=== PATIENT | female | born 1960 | race Caucasian/White ===

== ENCOUNTER 2018-05-09 11:55 | Emergency (ER) | payer OTHER ==
[~2018-05-09] VITALS: Ht 172.7 cm; Wt 82.0 kg
[2018-05-09] MEDS ORDERED: TETanus/Pertussis (Acell)/Diphther VAC/PF (Tdap-Adult) 0.5ml syringe IM ONE (14:25)
[2018-05-09] MEDS ORDERED: LIDOcaine 1.5% w/epinephrine 1:200,000 5ml ampul IJ ONE (14:25)
[2018-05-09] MEDS ORDERED: bacitracin 15gm ointment TP ONE (14:25)
[2018-05-09 16:22] VITALS: BP 127/92
== END 2018-05-09 16:24 | disposition home or self-care (01) ==
LOC: ER 11:56
DX: S81.012A Laceration without foreign body, left knee, initial encounter (principal); S60.221A Contusion of right hand, initial encounter; W01.0XXA Fall on same level from slipping, tripping and stumbling without subsequent striking against object, initial encounter; Y93.89 Activity, other specified; Y92.89 Other specified places as the place of occurrence of the external cause; Y99.8 Other external cause status
CPT/HCPCS: 12002; 73130; 73564; 90471; 90715; 99284; A6255; A6449; J3490